=== PATIENT | female | born 1990 | race Hispanic/Latino ===

== ENCOUNTER 2016-10-10 17:29 | Emergency (ER) | payer OTHER ==
[~2016-10-10] VITALS: Ht 165.1 cm; Wt 160.0 kg
[~2016-10-10 17:29] MED LIST: ADVIL200 MG OR; ANTI-DIARRHE2 M1 OR; DOXYCYCL HYC100 MG PO; MOTRIN800 MG PO; TESSALON PER100 MG PO
[2016-10-10] MEDS ORDERED: CYMBALTA20 MG PO (17:54)
[2016-10-10 19:09] LABS: HEMATOCRIT 44.3 % (37.0-47.0); HEMOGLOBIN 14.8 g/dl (12.0-16.0); IMMATURE GRANULOCYTES 0.3 % (0.0-1.0); MEAN CELL VOLUME 88.4 fL CALC (80.0-100.0); MEAN CORPUSCULAR HGB 29.5 pG CALC (26.0-32.0); MEAN CORPUSCULAR HGB CONC 33.4 g/L CALC (32.0-36.0); NEUT# 9.19 thou/uL (2.00-7.15); RED BLOOD COUNT 5.01 mill/uL (4.20-5.60); RED CELL DISTRI WIDTH 11.8 % (11.5-15.5)
[2016-10-10 19:26] LABS: ALBUMIN 4.7 g/dL (3.2-5.0); ALKALINE PHOSPHATASE 98 u/l (38-126); ANION GAP 15 (6-22 (CALC)); BILIRUBIN, TOTAL 0.5 mg/dL (0.0-1.4); BUN 11 mg/dL (7-17); BUN/CREATININE RATIO 16 (12-20 (CALC)); CALCIUM 9.9 mg/dL (8.4-10.2); CARBON DIOXIDE 31 mmol/l (22-30); CHLORIDE 97 mmol/l (95-108); CREATININE 0.7 mg/dL (0.5-1.0); GFR > 60 ML/MIN (>=60 (CALC)); GFR FOR AFR.AMER. > 60 ML/MIN (>=60 (CALC)); GLUCOSE 101 mg/dL (65-105); POTASSIUM 3.4 mmol/l (3.5-5.1); SGOT/AST 28 u/l (14-36); SGPT/ALT 34 u/l (9-52); SODIUM 140 mmol/l (137-146); TOTAL PROTEIN 8.3 g/dL (6.3-8.2)
[2016-10-10 19:37] LABS: URINE BILIRUBIN - DIPSTICK NEGATIVE (NEGATIVE); URINE BLOOD DIPSTICK NEGATIVE (NEGATIVE); URINE CLARITY CLEAR; URINE COLOR YELLOW; URINE GLUCOSE - DIPSTICK NEGATIVE (NEGATIVE); URINE KETONE NEGATIVE (NEGATIVE); URINE LEUK ESTERASE NEGATIVE (NEGATIVE); URINE NITRITE - DIPSTICK NEGATIVE (Negative); URINE PROTEIN - DIPSTICK NEGATIVE (NEG-TRACE); URINE UROBILINOGEN - DIPSTICK 0.2 E.U./dL (0.2)
[2016-10-10 19:39] LABS: BARBITURATES NEGATIVE (NEGATIVE); COCAINE NEGATIVE (NEGATIVE); METHADONE NEGATIVE (NEGATIVE); OXCYCODONE NEGATIVE (NEGATIVE); TETRAHYDROCANNABIONOL NEGATIVE (NEGATIVE); TRICYLIC ANTIDEPRESSANTS NEGATIVE (NEGATIVE)
[2016-10-10] MEDS ORDERED: ATIVAN0.5 MG PO (20:27)
[2016-10-10 20:41] VITALS: BP 111/70
== END 2016-10-10 20:41 | disposition home or self-care (01) | DRG 880 ==
LOC: ED 17:29
PROVIDERS: Emergency Medicine
DX: F41.9 Anxiety disorder, unspecified (principal)
CPT/HCPCS: J2060

== ENCOUNTER 2021-07-30 23:44 | Emergency (ER) | payer OTHER ==
[~2021-07-30] VITALS: Ht 170.2 cm; Wt 79.0 kg
[~2021-07-30 23:44] MED LIST changes: +ATIVAN0.5 MG PO; +CYMBALTA20 MG PO
[2021-07-31 02:00] VITALS: BP 124/70
== END 2021-07-31 02:00 | disposition home or self-care (01) ==
LOC: ED 23:44
DX: J02.9 Acute pharyngitis, unspecified (principal); Z86.16 Personal history of COVID-19; Z20.822 Contact with and (suspected) exposure to COVID-19

== ENCOUNTER 2023-03-07 23:01 | Emergency (ER) | payer OTHER ==
[~2023-03-07] VITALS: Ht 170.2 cm; Wt 68.0 kg
[2023-03-07 23:59] LABS: BASO% 0.5 % (0-3); EOS% 0.8 % (0-8); HEMATOCRIT 43.7 % (37.0-47.0); HEMOGLOBIN 14.2 g/dl (12.0-16.0); IMMATURE GRANULOCYTES 0.7 % (0.0-5.0); LYMPH% 38.3 % (15-41); MEAN CELL VOLUME 89.9 fL CALC (80.0-100.0); MEAN CORPUSCULAR HGB 29.2 pG CALC (26.0-32.0); MEAN CORPUSCULAR HGB CONC 32.5 g/dL CAL (32.0-36.0); MONO% 5.2 % (2-13); NEUT# 4.17 thou/uL (2.00-7.15); NEUT% 54.5 % (42-76); RED BLOOD COUNT 4.86 mill/uL (4.20-5.60); RED CELL DISTRI WIDTH 12.2 % (11.5-15.5)
[2023-03-08 00:14] LABS: ALBUMIN 4.2 g/dL (3.2-5.0); ALKALINE PHOSPHATASE 69 u/l (38-126); ANION GAP 11 (6-22 (CALC)); BILIRUBIN, TOTAL 0.2 mg/dL (0.02-1.3); BUN 11 mg/dL (7-17); BUN/CREATININE RATIO 14 (12-20 (CALC)); CARBON DIOXIDE 28 mmol/l (22-30); CHLORIDE 110 mmol/l (95-108); CREATININE 0.8 mg/dL (0.5-1.0); ETHYL ALCOHOL 207 mg/dl (0-30); GFR FOR AFR.AMER. > 60 ML/MIN (>=60 (CALC)); GFR OTHER RACES > 60 ML/MIN (>=60 (CALC)); POTASSIUM 3.5 mmol/l (3.5-5.1); SGOT/AST 46 u/l (14-36); SODIUM 145 mmol/l (137-146); TOTAL PROTEIN 7.6 g/dL (6.3-8.2)
[2023-03-08 00:33] VITALS: BP 137/98
== END 2023-03-08 00:40 | DRG 923 ==
LOC: ED 23:01
PROVIDERS: Family Medicine
DX: Z04.1 Encounter for examination and observation following transport accident (principal); F10.129 Alcohol abuse with intoxication, unspecified; Y90.7 Blood alcohol level of 200-239 mg/100 ml; Z86.16 Personal history of COVID-19

== ENCOUNTER 2024-02-01 06:43 | Emergency (ER) | payer OTHER ==
[2024-02-01] VITALS (7 sets, daily range): BP systolic 118–132; BP diastolic 68–105
[~2024-02-01] VITALS: Ht 170.2 cm; Wt 77.1 kg
[~2024-02-01 06:43] MED LIST changes: +BACTRIM DS1 TAB PO; +CYMBALTA30 MG PO; +MONTELUKAST SOD10 MG PO; +PYRIDIUM200 MG PO; +XYZAL ALLERGY 245 MG PO
[2024-02-01] MEDS ORDERED: ZPAK PO (08:03)
[2024-02-01] MEDS ORDERED: DEXAMETHASONE 2 MG/TAB TAB PO ONE (08:05)
== END 2024-02-01 08:14 | disposition home or self-care (01) ==
LOC: ED 06:43
DX: J06.9 Acute upper respiratory infection, unspecified (principal); F41.9 Anxiety disorder, unspecified; Z86.16 Personal history of COVID-19; Z20.822 Contact with and (suspected) exposure to COVID-19

== ENCOUNTER 2024-08-13 18:46 | Emergency (ER) | payer OTHER ==
[~2024-08-13] VITALS: Ht 170.2 cm; Wt 79.0 kg
[~2024-08-13 18:46] MED LIST changes: +ZPAK PO
[2024-08-13 21:37] VITALS: BP 157/92
[2024-08-13] MEDS ORDERED: SULFAMETHOXAZOLE W/TRIMETHOPRI 1 COMBO TAB PO ONE (21:40)
[2024-08-13] MEDS ORDERED: BACTRIM DS1 TAB PO (21:41)
== END 2024-08-13 21:50 | disposition home or self-care (01) ==
LOC: ED 18:46
DX: T19.2XXA Foreign body in vulva and vagina, initial encounter (principal); F41.9 Anxiety disorder, unspecified; W44.F9XA Other object of natural or organic material, entering into or through a natural orifice, initial encounter; Z86.16 Personal history of COVID-19